=== PATIENT | female | born 1960 | race Caucasian/White ===

== ENCOUNTER 2018-01-18 20:04 | Emergency (ER) | payer SELFPAY ==
[~2018-01-18] VITALS: Ht 167.6 cm; Wt 58.1 kg
[2018-01-18 20:07] VITALS: BP 211/127
--- NOTE | 2018-01-18 20:10 | NUR ---
TO ROOM 11.
[2018-01-18] MEDS ORDERED: MORPHINE SULFATE 4 MG/ML SYR IVP ONE (20:15)
[2018-01-18] MEDS ORDERED: PROCHLORPERAZINE 10 MG/2 ML VIAL IVP ONE (20:15)
[2018-01-18] MEDS ORDERED: ENALAPRILAT 2.5 MG/2 ML VIAL IVP ONE (20:15)
[2018-01-18 20:35] LABS: BASOPHILS % (AUTO) 0.4 % (0.0-2.0); EOSINOPHILS % (AUTO) 0.1 % (0.0-4.0); HEMATOCRIT 46.6 % (36-48); HEMOGLOBIN 15.5 g/dL (12.0-16.0); LYMPHOCYTES # (AUTO) 0.7 K/uL (2.5-16.5); MEAN CORPUSCULAR HEMOGLOBIN 29 pg (27-31); MEAN CORPUSCULAR HGB CONC 33 g/dL (33-37); MONOCYTES # (AUTO) 0.5 K/uL (0.8-1.0); MONOCYTES % (AUTO) 5.7 % (1.7-9.3); NEUTROPHILS # (AUTO) 6.9 K/uL (1.8-7.7); NEUTROPHILS % (AUTO) 84.8 % (42.2-75.2); PLATELET COUNT (AUTO) 186 K/uL (140-450); RED CELL DISTRIBUTION WIDTH 13.3 % (11.6-13.7); WHITE BLOOD COUNT (AUTO) 8.1 K/uL (4.8-10.8)
--- NOTE | 2018-01-18 20:35 | NUR ---
PT PROVIDED W/ URINE CUP STATES SHE "DOES NOT HAVE TO PEE NOW".
--- NOTE | 2018-01-18 20:35 | NUR ---
PT PRESENTS TO ER C/O HEADACHE AND LEFT EAR PAIN SINCE LAST NIGHT. PT AA&OX4. PT STATES SHE HAS HIGH B/P BUT DOES NOT CURRENTLY TAKE MEDS BECAUSE SHE DOSNT KNOW WHICH ONES TO TAKE. NO DRAINAGE OR BLEEDING NOTED FROM EAR, PT DENIES TRAUMA TO HEAD. PERRL. PT LAYING IN BED HOLDING LEFT EAR AND MOANING. PMH MIGRAINES, HYSTERECTOMY, HTN
[2018-01-18 20:44] LABS: ANION GAP 12.8 (8-16); CARBON DIOXIDE 28.5 mmol/L (21-32); POTASSIUM 3.3 mmol/L (3.5-5.1)
[2018-01-18 20:50] LABS: ALBUMIN 3.6 g/dL (3.4-5.0); TOTAL BILIRUBIN 0.8 mg/dL (0.0-1.0)
[2018-01-18 21:45] LABS: APPEARANCE,URINE CLOUDY (CLEAR); BILIRUBIN,URINE NEGATIVE (NEGATIVE); BLOOD, URINE 2+ (NEGATIVE); COLOR,URINE YELLOW (YELLOW); LEUKOCYTE ESTERASE ,URINE 3+ (NEGATIVE); NITRITE, URINE POSITIVE (NEGATIVE); UGLUCOSE NEGATIVE (NEGATIVE)
[2018-01-18 21:59] LABS: RBC,URINE 0-5 (RARE) /HPF (0-5); WBC,URINE TOO MANY TO COUNT /HPF (0-5)
--- NOTE | 2018-01-18 22:40 | NUR ---
IV removed, catheter intact and site benign. Applied folded 4x4 gauze and tape to stop bleeding.
[2018-01-18 22:49] VITALS: BP 133/78
--- NOTE | 2018-01-18 22:49 | NUR ---
Patient discharged with v/s stable. Written and verbal after care instructions given and explained. Patient alert, oriented and verbalized understanding of instructions. Ambulatory with steady gait. All questions addressed prior to discharge. ID band removed. Patient advised to follow up with PMD. Rx of lisinopril, nitrofurantoin given. Patient educated on indication of medication including possible reaction and side effects. Opportunity to ask questions provided and answered.
== END 2018-01-18 22:49 | disposition home or self-care (01) ==
LOC: MED 20:04
DX: R51 Headache (principal); I10 Essential (primary) hypertension; N39.0 Urinary tract infection, site not specified; J44.9 Chronic obstructive pulmonary disease, unspecified; Z88.8 Allergy status to other drugs, medicaments and biological substances
CPT/HCPCS: 36415; 70450; 71045; 80053; 81001; 81025; 84484; 85025; 87086; 87186; 93005; 96374; 96375; 99285; J0780; J2270; J3490; Q0092

== ENCOUNTER 2020-06-21 00:50 | Emergency (ER) | payer OTHER ==
[~2020-06-21] VITALS: Ht 167.6 cm; Wt 58.1 kg
[2020-06-21 00:59] VITALS: BP 209/124
--- NOTE | 2020-06-21 01:00 | NUR ---
60 Y/O FEMALE PRESENTED TO ED C/O RLQ ABD PAIN RADIATING TO RT FLANK SINCE 1999 LAST NIGHT . PT TOOK MOTRIN 800 MG AT 2030 W/ NO RELIEF. ABD SOFT , FLAT AND TENDER TO PALPATION. PT STATES PAIN IS SHARP NON RADIATING. PT DENIES DYSURIA , FEVER , BODY ACHES , CHILLS. PT +NAUSEA. A/O X4 , RR EVEN AND UNLABORED. SKIN PINK , WARM AND INTACT. PT PLACED IN GOWN , CONNECTED TO OBSERVATION NURSE, PULSE OX AND BP CUFF. ERMD MADE AWARE OF PT ELEVATED BP AT THIS TIME. PT DENIES HORNER, BLURRY VISION AT THIS TIME. BED LOCKED AND IN LOWEST POSITION ,HOB ELEVATED, SIDE RAIL X1. PMH: HTN, Cholecystectomy, APPENDECTOMY AX: CEPHALEXIN
--- NOTE | 2020-06-21 01:20 | NUR ---
Dr. Carter examining patient.
[2020-06-21] MEDS ORDERED: KETOROLAC 30 MG/ML VIAL IVP ONE (01:25)
[2020-06-21] MEDS ORDERED: NACL 0.9% 1,000 ML IV ONE (01:25)
[2020-06-21] MEDS ORDERED: ONDANSETRON 4 MG/2 ML VIAL IVP ONE (01:25)
--- NOTE | 2020-06-21 01:28 | NUR ---
BLOOD LABS COLLECTED AND HANDED TO SHILPA LINARES.
[2020-06-21] MEDS ORDERED: hydrALAZINE 20 MG/ML VIAL IVP ONE (01:30)
--- NOTE | 2020-06-21 01:44 | NUR ---
PT AMBULATED TO RESTROOM W/ STEADY GAIT.
[2020-06-21 01:47] LABS: BASOPHILS % (AUTO) 0.5 % (0.0-2.0); EOSINOPHILS % (AUTO) 0.2 % (0.0-4.0); HEMATOCRIT 45.6 % (36-48); HEMOGLOBIN 15.5 g/dL (12.0-16.0); LYMPHOCYTES # (AUTO) 0.9 K/uL (2.5-16.5); LYMPHOCYTES % (AUTO) 13.5 % (20.5-51.1); MEAN CORPUSCULAR HEMOGLOBIN 30 pg (27-31); MEAN CORPUSCULAR HGB CONC 34 g/dL (33-37); MEAN CORPUSCULAR VOLUME 88.6 fL (80-94); MONOCYTES # (AUTO) 0.3 K/uL (0.8-1.0); MONOCYTES % (AUTO) 4.7 % (1.7-9.3); NEUTROPHILS # (AUTO) 5.7 K/uL (1.8-7.7); NEUTROPHILS % (AUTO) 81.1 % (42.2-75.2); PLATELET COUNT (AUTO) 174 K/uL (140-450); RED BLOOD CELL COUNT(AUTO) 5.15 MIL/uL (4.20-5.40); RED CELL DISTRIBUTION WIDTH 12.7 % (11.6-13.7)
--- NOTE | 2020-06-21 01:50 | NUR ---
URINE SAMPLE PROVIDED BY PT . NO UA ORDERED AT THIS TIME , URINE SAMPLE PLACED IN DIRTY UTILITY AT THIS TIME.
--- NOTE | 2020-06-21 01:51 | NUR ---
PT TAKEN TO CT VIA [facility].
--- NOTE | 2020-06-21 01:59 | NUR ---
PER ERMD ADMINISTER URINE DIP AT THIS TIME.
--- NOTE | 2020-06-21 02:00 | NUR ---
PT RETURN FROM CT
[2020-06-21 02:01] LABS: ANION GAP 14.8 (8-16); CARBON DIOXIDE 27.2 mmol/L (21-32)
[2020-06-21 02:08] LABS: ALBUMIN 4.1 g/dL (3.4-5.0); TOTAL BILIRUBIN 0.5 mg/dL (0.0-1.0)
--- NOTE | 2020-06-21 02:32 | NUR ---
PER PT AUTHORIZATION SPOKE W/ PT BOYFRIEND ARVIN REGARDING PT STATUS. WILL CALL ARVIN WHEN PT IS READY FOR DISCHARGE (cell)[phone]
--- NOTE | 2020-06-21 02:55 | NUR ---
ERMD AT BEDSIDE FOR REMEDICAL EVALUATION.
--- NOTE | 2020-06-21 03:10 | NUR ---
IV removed, catheter intact and site benign. Applied folded 4x4 gauze and tape to stop bleeding.
[2020-06-21 03:12] VITALS: BP 145/78
--- NOTE | 2020-06-21 03:12 | NUR ---
Patient discharged with v/s stable. Written and verbal after care instructions given and explained. Patient alert, oriented and verbalized understanding of instructions. Ambulatory with steady gait. All questions addressed prior to discharge. ID band removed. Patient advised to follow up with PMD. Rx of MINERAL OIL, MIRALAX, TRAMADOL AND ZOFRAN given. Patient educated on indication of medication including possible reaction and side effects. Opportunity to ask questions provided and answered.
== END 2020-06-21 03:12 | disposition home or self-care (01) ==
LOC: MED 00:50
DX: K59.00 Constipation, unspecified (principal); I10 Essential (primary) hypertension; J44.9 Chronic obstructive pulmonary disease, unspecified; Z88.1 Allergy status to other antibiotic agents; Z90.49 Acquired absence of other specified parts of digestive tract
CPT/HCPCS: 36415; 74176; 80053; 81002; 83690; 85025; 96361; 96374; 96375; 99285; J0360; J1885; J2405; J7030; 99284

== ENCOUNTER 2020-08-17 14:50 | Inpatient (IN) | payer OTHER, SELFPAY ==
[~2020-08-17] VITALS: Ht 170.2 cm; Wt 68.0 kg
--- NOTE | 2020-08-17 14:50 | NUR ---
PATIENT EVALUATED BY [facility] IN [facility].
[2020-08-17 14:56] VITALS: BP 156/102
[2020-08-17] MEDS ORDERED: LACTATED RINGERS 1,000 ML IV ONE ×2 (15:00→16:05)
[2020-08-17] MEDS ORDERED: ONDANSETRON 4 MG/2 ML VIAL IVP ONE (15:00)
[2020-08-17 15:19] LABS: BASOPHILS % (AUTO) 0.4 % (0.0-2.0); EOSINOPHILS % (AUTO) 0.1 % (0.0-4.0); HEMATOCRIT 45.2 % (36-48); HEMOGLOBIN 15.3 g/dL (12.0-16.0); LYMPHOCYTES # (AUTO) 0.7 K/uL (2.5-16.5); LYMPHOCYTES % (AUTO) 13.4 % (20.5-51.1); MEAN CORPUSCULAR HEMOGLOBIN 30 pg (27-31); MEAN CORPUSCULAR HGB CONC 34 g/dL (33-37); MEAN CORPUSCULAR VOLUME 88.2 fL (80-94); MONOCYTES # (AUTO) 0.2 K/uL (0.8-1.0); MONOCYTES % (AUTO) 3.1 % (1.7-9.3); NEUTROPHILS # (AUTO) 4.4 K/uL (1.8-7.7); PLATELET COUNT (AUTO) 175 K/uL (140-450); RED BLOOD CELL COUNT(AUTO) 5.12 MIL/uL (4.20-5.40); RED CELL DISTRIBUTION WIDTH 12.8 % (11.6-13.7); WHITE BLOOD COUNT (AUTO) 5.3 K/uL (4.8-10.8)
[2020-08-17 15:54] LABS: ALBUMIN 3.9 g/dL (3.4-5.0); ANION GAP 11.2 (8-16); CARBON DIOXIDE 27.7 mmol/L (21-32); POTASSIUM 3.9 mmol/L (3.5-5.1); TOTAL BILIRUBIN 0.4 mg/dL (0.0-1.0)
[2020-08-17] MEDS ORDERED: ONDANSETRON 4 MG/2 ML VIAL ONE (16:06)
--- NOTE | 2020-08-17 16:13 | NUR ---
EMERGENCY CONTACTS: ARVIN (BOYFRIEND) [phone], LESLIE (DAUGHTER) [phone]. PATIENT GAVE PERMISSION TO GIVE INFORMATION TO BOTH BOYFRIEND AND DAUGHTER. GAVE UPDATE TO BOTH.
[2020-08-17] MEDS ORDERED: MORPHINE SULFATE 4 MG/ML SYR IVP ONE (16:25)
[2020-08-17] MEDS ORDERED: MAG SULF 2000 MG/WATER PREMIX 50 ML IV PRN (16:45)
[2020-08-17] MEDS ORDERED: KCL 20 MEQ/WATER INJ PREMIX 200 ML IV PRN (16:45)
[2020-08-17] MEDS ORDERED: ONDANSETRON 4 MG/2 ML VIAL IVP PRN (16:45)
[2020-08-17] MEDS ORDERED: METOCLOPRAMIDE 10 MG/2 ML INJ VIAL IVP PRN (16:45)
[2020-08-17] MEDS ORDERED: ACETAMINOPHEN 325 MG TAB PO PRN (16:45)
--- NOTE | 2020-08-17 16:46 | NUR ---
PATIENT TAKEN TO US.
--- NOTE | 2020-08-17 18:13 | NUR ---
ASKED PT TO PROVIDE URINE SAMPLE. SHE STATED SHE IS NOT ABLE TO PROVIDE AT THIS TIME.
--- NOTE | 2020-08-17 19:20 | NUR ---
Report received from LUNA Alva for continuation of care.
--- NOTE | 2020-08-17 19:30 | NUR ---
60 y/o female BIBA c/o nausea & vomiting after meth use w/ 05/20 epigastric sharp nonradiating pain. A/O x 4 . RR even and unlabored. Abd flat, soft and nontender. Active bowel sounds in all quadrants. Pt denies CP, HORNER, SOB, diarrhea, fever and chills. Pt laying in bed, locked and in lowest position, HOB elevated, side rail x 2 for pt safety. VSS. No acute distress noted. pmh: HTN, COPD, hx of meth use ax: cephalexin
--- NOTE | 2020-08-17 19:53 | NUR ---
Delay in Lactated Ringers Fluid administration due to previous fluids still running at this time.
--- NOTE | 2020-08-17 19:53 | NUR ---
Jaylon lopez in [facility] - 08/17/20 at 1953 by NAMRATA Report received from LUNA Alva for continuation of care.
[2020-08-17] MEDS: ACETAMINOPHEN 325 MG TAB PO SCH (20:45)
[2020-08-17] MEDS ORDERED: KETOROLAC 15 MG/ML VIAL IVP PRN (20:45)
--- NOTE | 2020-08-17 20:50 | NUR ---
Pt sleeping in bed, locked and in lowest position, HOB elevated, side rail x 2 for pt safety. Visible rise and fall of chest. VSS.
[2020-08-17] MEDS: NACL 0.9% 1,000 ML IV SCH ×2 (22:22→22:28)
[2020-08-17] MEDS: FAMOTIDINE 20 MG/2 ML VIAL IV SCH (22:23)
--- NOTE | 2020-08-17 23:00 | NUR ---
Pt unable to provide urine at this time.
--- NOTE | 2020-08-17 23:41 | NUR ---
Pt ambulated to restroom w/ assistance.
--- NOTE | 2020-08-17 23:50 | NUR ---
Urine sample collected and walked to lab.
--- NOTE | 2020-08-17 23:59 | NUR ---
Pt accidentally pulled out IV. IV catheter intact and site benign. Applied folded 4x4 gauze and tape to stop bleeding.
--- NOTE | 2020-08-18 00:30 | NUR ---
Delay in fluid administration due to no IV access at this time.
--- NOTE | 2020-08-18 02:48 | NUR ---
Pt sleeping in bed, visible rise and fall of chest. RR even and unlabored. No acute distress noted.
--- NOTE | 2020-08-18 03:49 | NUR ---
Pt taken to restroom via w/c.
[2020-08-18] MEDS: NACL 0.9% 1,000 ML IV SCH ×4 (04:11→21:20)
--- NOTE | 2020-08-18 04:22 | NUR ---
No administration of new NS fluids d/t other NS IVF still infusing because of delay from earlier not having IV access.
[2020-08-18] MEDS: ACETAMINOPHEN 325 MG TAB PO SCH ×4 (06:00→18:30)
--- NOTE | 2020-08-18 06:53 | NUR ---
pt sleeping on left side. RR even and unlabored. VSS. No acute distress noted.
--- NOTE | 2020-08-18 07:21 | NUR ---
Report provided to LUNA Lynne for transfer of care.
[2020-08-18] MEDS: FAMOTIDINE 20 MG/2 ML VIAL IV SCH ×2 (09:45→21:00)
--- NOTE | 2020-08-18 10:00 | NUR ---
PT ALERT AND AWAKE, BREATHING EVEN AND UNLABORED.
[2020-08-18 10:46] LABS: BASOPHILS % (AUTO) 0.4 % (0.0-2.0); EOSINOPHILS % (AUTO) 0.1 % (0.0-4.0); HEMOGLOBIN 14.4 g/dL (12.0-16.0); LYMPHOCYTES % (AUTO) 20.2 % (20.5-51.1); MEAN CORPUSCULAR HEMOGLOBIN 30 pg (27-31); MEAN CORPUSCULAR HGB CONC 33 g/dL (33-37); MEAN CORPUSCULAR VOLUME 89.2 fL (80-94); MONOCYTES # (AUTO) 0.3 K/uL (0.8-1.0); MONOCYTES % (AUTO) 6.7 % (1.7-9.3); NEUTROPHILS # (AUTO) 3.7 K/uL (1.8-7.7); NEUTROPHILS % (AUTO) 72.6 % (42.2-75.2); PLATELET COUNT (AUTO) 165 K/uL (140-450); RED BLOOD CELL COUNT(AUTO) 4.82 MIL/uL (4.20-5.40); RED CELL DISTRIBUTION WIDTH 12.9 % (11.6-13.7); WHITE BLOOD COUNT (AUTO) 5.1 K/uL (4.8-10.8)
[2020-08-18 11:12] LABS: CHOL/HDL RATIO 2.7 (1-4.5)
[2020-08-18 11:13] LABS: ALBUMIN 3.3 g/dL (3.4-5.0); ANION GAP 9.5 (8-16); CARBON DIOXIDE 28.4 mmol/L (21-32); CREATININE 0.9 mg/dL (0.6-1.3); POTASSIUM 3.9 mmol/L (3.5-5.1); TOTAL BILIRUBIN 0.9 mg/dL (0.0-1.0)
--- NOTE | 2020-08-18 13:42 | NUR ---
PATIENT HAS BEEN SCREENED AND CATEGORIZED LOW NUTRITION RISK. PATIENT WILL BE SEEN WITHIN 7 DAYS OF ADMISSION. 08/23/[address]
--- NOTE | 2020-08-18 13:55 | NUR ---
PT ALERT AND AWAKE, BREATHING EVEN AND UNLABORED.
[2020-08-18] MEDS ORDERED: ACETAMINOPHEN EXTRA STRENGTH 500 MG TAB ONE (18:29)
--- NOTE | 2020-08-18 19:19 | NUR ---
REPORT GIVEN TO JIM CARRASCO, JUD OF CARE AT THIS TIME
--- NOTE | 2020-08-18 19:32 | NUR ---
RECEIVED REPORT FROM JIN CARRASCO
--- NOTE | 2020-08-18 19:47 | NUR ---
PT LAYING ON GURNEY WITH EYES CLOSED, RESPIRATIONS REGULAR EVEN AND UNLABORED. NO DISTRESS NOTED AT THIS TIME
--- NOTE | 2020-08-18 22:50 | NUR ---
Jaylon olpez in ED - 08/18/20 at 2251 by BENJIE APPT 70.4. NO CHANGE TO HEPARIN DRIP AT THIS TIME PER PROTOCOL
--- NOTE | 2020-08-19 01:33 | NUR ---
REPORT GIVEN TO SRAVANTHI CARRASCO FOR TRANSFER OF CARE
--- NOTE | 2020-08-19 01:46 | NUR ---
PT ASLEEP AND EASILY AROUSEABLE TO VOICE. VSS. IV FLUIDS RUNNING AT THIS TIME. SIDE RAILS UP AND BED IN LOWEST POSITION FOR SAFETY
[2020-08-19] MEDS: NACL 0.9% 1,000 ML IV SCH ×4 (03:03→20:34)
--- NOTE | 2020-08-19 05:30 | NUR ---
PT ASLEEP IN BED AND EASILY AROUSEABLE TO VOICE. PT VSS.
[2020-08-19] MEDS: ACETAMINOPHEN 325 MG TAB PO SCH ×4 (06:01→18:00)
--- NOTE | 2020-08-19 06:04 | NUR ---
PT AMBULATED TO RESTROOM
--- NOTE | 2020-08-19 07:23 | NUR ---
Pt report given to ESSIE CARRASCO. Transfer of care at this time.
--- NOTE | 2020-08-19 07:26 | NUR ---
Report received from LUNA White, transfer of care at this time.
--- NOTE | 2020-08-19 07:51 | NUR ---
Pt sleeping easily arousable, requested juice, VSS, will continue to monitor.
[2020-08-19 08:11] LABS: HEPATITIS A ANTIBODY IGM Negative (Negative); HEPATITIS B CORE AB TOTAL Negative (Negative); HEPATITIS B SURFACE ANTIBODY Non Reactive (.); HEPATITIS B SURFACE ANTIGEN Negative (Negative)
[2020-08-19 09:12] LABS: BASOPHILS % (AUTO) 0.4 % (0.0-2.0); EOSINOPHILS % (AUTO) 0.5 % (0.0-4.0); HEMOGLOBIN 13.4 g/dL (12.0-16.0); LYMPHOCYTES # (AUTO) 0.9 K/uL (2.5-16.5); LYMPHOCYTES % (AUTO) 21.2 % (20.5-51.1); MEAN CORPUSCULAR HEMOGLOBIN 30 pg (27-31); MEAN CORPUSCULAR HGB CONC 34 g/dL (33-37); MEAN CORPUSCULAR VOLUME 89.3 fL (80-94); MONOCYTES # (AUTO) 0.3 K/uL (0.8-1.0); MONOCYTES % (AUTO) 7.5 % (1.7-9.3); NEUTROPHILS % (AUTO) 70.4 % (42.2-75.2); PLATELET COUNT (AUTO) 144 K/uL (140-450); RED BLOOD CELL COUNT(AUTO) 4.48 MIL/uL (4.20-5.40); RED CELL DISTRIBUTION WIDTH 13.1 % (11.6-13.7); WHITE BLOOD COUNT (AUTO) 4.3 K/uL (4.8-10.8)
[2020-08-19 09:32] LABS: ALBUMIN 2.9 g/dL (3.4-5.0); ANION GAP 14.2 (8-16); CARBON DIOXIDE 23.5 mmol/L (21-32); CREATININE 0.8 mg/dL (0.6-1.3); POTASSIUM 3.7 mmol/L (3.5-5.1); TOTAL BILIRUBIN 0.7 mg/dL (0.0-1.0)
[2020-08-19] MEDS: FAMOTIDINE 20 MG/2 ML VIAL IV SCH ×2 (10:02→20:44)
--- NOTE | 2020-08-19 10:18 | NUR ---
Pt sleeping, visible equal rise and fall of chest, VSS, will continue to monitor.
--- NOTE | 2020-08-19 12:19 | NUR ---
Pt sleeping HOB lowered for comfort, VSS, will continue to monitor.
--- NOTE | 2020-08-19 14:29 | NUR ---
Pt sleeping, HOB lowered for comfort, VSS, will continue to monitor.
--- NOTE | 2020-08-19 17:17 | NUR ---
Spoke with Beulah pt for updates on pt.
--- NOTE | 2020-08-19 18:43 | NUR ---
Pt sleeping, equal visible rise and fall of chest, VSS, will continue to monitor.
--- NOTE | 2020-08-19 19:38 | NUR ---
Gave report to LUNA White, transfer of care at this time.
--- NOTE | 2020-08-19 19:41 | NUR ---
RECEIVED REPORT FROM ESSIE CARRASCO
--- NOTE | 2020-08-19 19:41 | NUR ---
PT SLEEPING. RESPIRATIONS REGULAR EVEN AND UNLABORED. NO DISTRESS NOTED
--- NOTE | 2020-08-19 19:55 | NUR ---
PT SLEEPING ON GURNEY, IV FLUIDS INFUSING. RESPIRATIONS REGULAR EVEN AND UNLABORED.
--- NOTE | 2020-08-19 22:29 | NUR ---
PT AMBULATED TO ED RESTROOM WITH STEADY GAIT.
--- NOTE | 2020-08-20 02:24 | NUR ---
PT STATING SHE WANST TO GO HOME, SAYS SHE IS TIRED OF WAITING IN THE ER. PT ADVISED THAT SHE IS ALREADY ADMITTED AND JUST BEING HELD IN THE ER UNTIL A ROOM ON THE UNIT OPENS UP. PT VERBALIZED UNDERSTANDING, ROLLED OVER AND WENT BACK TO SLEEP.
[2020-08-20] MEDS: ACETAMINOPHEN 325 MG TAB PO SCH ×2 (06:00)
[2020-08-20] MEDS: NACL 0.9% 1,000 ML IV SCH (06:15)
--- NOTE | 2020-08-20 07:33 | NUR ---
RECEIVED REPORT FROM JIM CARRASCO FOR CONTINUITY OF CARE.
--- NOTE | 2020-08-20 07:44 | NUR ---
PT RESTING IN BED, CHEST RISE AND FALL NOTED. ALL NEEDS MED. NO NEW CONCERNS AT THIS TIME. BED LOCKED AND IN LOWEST POSITION, SIDE RAIL UPX2.
[2020-08-20] MEDS: FAMOTIDINE 20 MG/2 ML VIAL IV SCH (09:59)
--- NOTE | 2020-08-20 10:16 | NUR ---
WAITING FOR PHARMACY TO BRING HEPARIN
--- NOTE | 2020-08-20 10:24 | NUR ---
SPOKE TO DR. CARLSON REGARDING UNABLE TO GET AN IV ESTABLISHED. PER DR'S ORDERS, TO CHANGE CLEAR LIQUID DIET TO REGULAR DIET, TO DC IV FLUIDS. DR. CARLSON SAID HE'LL COME LATER TO CHECK ON PT.
[2020-08-20 10:33] LABS: BASOPHILS % (AUTO) 0.5 % (0.0-2.0); EOSINOPHILS % (AUTO) 0.7 % (0.0-4.0); HEMATOCRIT 43.7 % (36-48); HEMOGLOBIN 14.9 g/dL (12.0-16.0); LYMPHOCYTES # (AUTO) 1.1 K/uL (2.5-16.5); LYMPHOCYTES % (AUTO) 26.7 % (20.5-51.1); MEAN CORPUSCULAR HEMOGLOBIN 30 pg (27-31); MEAN CORPUSCULAR HGB CONC 34 g/dL (33-37); MEAN CORPUSCULAR VOLUME 88.2 fL (80-94); MONOCYTES # (AUTO) 0.3 K/uL (0.8-1.0); MONOCYTES % (AUTO) 7.5 % (1.7-9.3); NEUTROPHILS # (AUTO) 2.7 K/uL (1.8-7.7); NEUTROPHILS % (AUTO) 64.6 % (42.2-75.2); PLATELET COUNT (AUTO) 164 K/uL (140-450); RED BLOOD CELL COUNT(AUTO) 4.96 MIL/uL (4.20-5.40); RED CELL DISTRIBUTION WIDTH 12.3 % (11.6-13.7); WHITE BLOOD COUNT (AUTO) 4.2 K/uL (4.8-10.8)
[2020-08-20 11:05] LABS: ALBUMIN 3.3 g/dL (3.4-5.0); CREATININE 0.9 mg/dL (0.6-1.3); POTASSIUM 3.7 mmol/L (3.5-5.1); TOTAL BILIRUBIN 0.6 mg/dL (0.0-1.0)
[2020-08-20 11:16] LABS: ANION GAP 10.7 (8-16)
[2020-08-20 14:10] VITALS: BP 130/80
--- NOTE | 2020-08-20 14:40 | NUR ---
PT D/C AND LEFT FACILITY AT THIS TIME.
--- NOTE | 2020-08-20 14:42 | NUR ---
PT LEFT RX AT [facility] -- CALLED PATIENT LEFT MESSAGE TO RETURN CALL. RX GIVEN TO ADMITTING STAFF FOR SAFE KEEPING.
== END 2020-08-20 14:40 | disposition home or self-care (01) | DRG 282 ==
LOC: MED 14:50 → MTU 16:42
PROVIDERS: ADMIT Hospitalist; ATTEND Hospitalist
DX: K85.90 Acute pancreatitis without necrosis or infection, unspecified (principal); Z20.822 Contact with and (suspected) exposure to COVID-19; Z88.8 Allergy status to other drugs, medicaments and biological substances; N32.89 Other specified disorders of bladder; I10 Essential (primary) hypertension; J44.9 Chronic obstructive pulmonary disease, unspecified; Z90.49 Acquired absence of other specified parts of digestive tract; Z90.710 Acquired absence of both cervix and uterus; F15.90 Other stimulant use, unspecified, uncomplicated; R74.01 Elevation of levels of liver transaminase levels; N20.0 Calculus of kidney
CPT/HCPCS: 36415; 76705; 80053; 83036; 83690; 83880; 84484; 85025; 86704; 86706; 86708; 86709; 86803; 87340; 96361; 96374; 96375; 99285; J1644; J1885; J2270; J2405; J3490; U0003

== ENCOUNTER 2021-02-03 13:36 | Emergency (ER) | payer OTHER, SELFPAY ==
[~2021-02-03] VITALS: Ht 167.6 cm; Wt 61.2 kg
[2021-02-03 13:54] VITALS: BP 160/114
--- NOTE | 2021-02-03 13:59 | NUR ---
PATIENT WHEELCHAIR ASSISTED TO ER BED 05
--- NOTE | 2021-02-03 14:22 | NUR ---
60 YEAR OLD FEMALE COMPLAINS OF DIZZINESS, HEADACHE, AND BODYACHES X 3 DAYS. PT STATES SHE IS FEELING WEAK, DENIES FALLING OR LOC. PT STATES SHE ALSO HAS NAUSEA BUT NOT VOMITTED. PT AOX4, BREATHING EVEN AND UNLABORED, SKIN WARM AND DRY. BED IN LOWEST POSITION, LOCKED, BED RAIL UPX1. PMH - HTN ALLERGIES - CEPHALEXIN, KEFLEX
[2021-02-03] MEDS ORDERED: METOCLOPRAMIDE 10 MG/2 ML INJ VIAL IVP ONE (14:25)
[2021-02-03 15:12] LABS: BASOPHILS % (AUTO) 0.5 % (0.0-2.0); EOSINOPHILS % (AUTO) 0.2 % (0.0-4.0); HEMOGLOBIN 16.6 g/dL (12.0-16.0); LYMPHOCYTES # (AUTO) 0.8 K/uL (2.5-16.5); LYMPHOCYTES % (AUTO) 8.6 % (20.5-51.1); MEAN CORPUSCULAR HEMOGLOBIN 30 pg (27-31); MEAN CORPUSCULAR HGB CONC 35 g/dL (33-37); MEAN CORPUSCULAR VOLUME 88.1 fL (80-94); MONOCYTES # (AUTO) 0.7 K/uL (0.8-1.0); MONOCYTES % (AUTO) 7.2 % (1.7-9.3); NEUTROPHILS # (AUTO) 7.6 K/uL (1.8-7.7); NEUTROPHILS % (AUTO) 83.5 % (42.2-75.2); PLATELET COUNT (AUTO) 166 K/uL (140-450); RED BLOOD CELL COUNT(AUTO) 5.45 MIL/uL (4.20-5.40); RED CELL DISTRIBUTION WIDTH 12.9 % (11.6-13.7); WHITE BLOOD COUNT (AUTO) 9.1 K/uL (4.8-10.8)
[2021-02-03 15:21] LABS: ANION GAP 13.8 (8-16); CARBON DIOXIDE 28.4 mmol/L (21-32); CREATININE 1.1 mg/dL (0.6-1.3); POTASSIUM 4.2 mmol/L (3.5-5.1)
[2021-02-03 15:27] LABS: TOTAL BILIRUBIN 0.9 mg/dL (0.0-1.0)
[2021-02-03] MEDS ORDERED: ACETAMINOPHEN 325 MG TAB PO ONE (15:45)
[2021-02-03] MEDS ORDERED: KETOROLAC 15 MG/ML VIAL IVP ONE (15:45)
[2021-02-03] MEDS ORDERED: NACL 0.9% 1,000 ML IV ONE (15:45)
--- NOTE | 2021-02-03 15:45 | NUR ---
PT ALERT AND AWAKE, BREATHING EVEN AND UNLABORED. NO DISTRESS NOTED. ALL NEEDS MET AT THIS TIME. WILL CONTINUE TO MONITOR.
[2021-02-03] MEDS ORDERED: IBUP-2213 PO (16:53)
[2021-02-03] MEDS ORDERED: ONDA-24 PO (16:53)
--- NOTE | 2021-02-03 17:00 | NUR ---
Patient discharged with v/s stable. Written and verbal after care instructions about migraine headache given and explained. Patient alert, oriented and verbalized understanding of instructions. Ambulatory with steady gait. All questions addressed prior to discharge. ID band removed. Patient advised to follow up with PMD. Rx of zofran, ibuprofen given. Patient educated on indication of medication including possible reaction and side effects. Opportunity to ask questions provided and answered.
[2021-02-03 17:03] VITALS: BP 155/109
== END 2021-02-03 17:00 | disposition home or self-care (01) ==
LOC: MED 13:36
DX: G43.909 Migraine, unspecified, not intractable, without status migrainosus (principal); I10 Essential (primary) hypertension; J44.9 Chronic obstructive pulmonary disease, unspecified; Z90.49 Acquired absence of other specified parts of digestive tract; Z90.710 Acquired absence of both cervix and uterus; Z88.1 Allergy status to other antibiotic agents; Z79.899 Other long term (current) drug therapy
CPT/HCPCS: 36415; 70450; 80053; 84484; 85025; 96365; 96375; 99284; J1885; J2765; 93005

== ENCOUNTER 2023-03-09 15:46 | Emergency (ER) | payer OTHER ==
[~2023-03-09] VITALS: Ht 162.6 cm; Wt 70.3 kg
[~2023-03-09 15:46] MED LIST: IBUP-2213 PO; ONDA-188 PO
[2023-03-09 17:21] VITALS: BP 161/89; PULSE 100; RESP 17; TEMP 97.1; O2SAT 98
[2023-03-09] MEDS ORDERED: INDO-305 PO (18:25)
[2023-03-09] MEDS ORDERED: HYDROcodone/APAP 5/325 MG 1 TAB TAB PO ONE (18:25)
[2023-03-09] MEDS ORDERED: FAMO-90 PO (18:25)
[2023-03-09 18:41] VITALS: BP 155/77; PULSE 98; RESP 17; TEMP 97.1; O2SAT 98
--- NOTE | 2023-03-09 18:42 | NUR ---
Patient discharged with v/s stable. Written and verbal after care instructions given and explained. Patient alert, oriented and verbalized understanding of instructions. Wheel Chair Assisted with to car. All questions addressed prior to discharge. ID band removed. Patient advised to follow up with PMD. Rx of INDOMETHACIN, PEPCID given. Patient educated on indication of medication including possible reaction and side effects. Opportunity to ask questions provided and answered.
== END 2023-03-09 18:42 | disposition home or self-care (01) ==
LOC: MED 15:46
DX: S91.332A Puncture wound without foreign body, left foot, initial encounter (principal); M10.9 Gout, unspecified; J44.9 Chronic obstructive pulmonary disease, unspecified; I10 Essential (primary) hypertension; Z79.899 Other long term (current) drug therapy; W22.8XXA Striking against or struck by other objects, initial encounter; Y93.89 Activity, other specified; Y92.89 Other specified places as the place of occurrence of the external cause; Y99.8 Other external cause status
CPT/HCPCS: 73630; 99283

== ENCOUNTER 2023-03-14 19:56 | Emergency (ER) | payer OTHER ==
[~2023-03-14] VITALS: Ht 167.6 cm; Wt 53.5 kg
[~2023-03-14 19:56] MED LIST changes: +FAMO-90 PO; +INDO-305 PO
--- NOTE | 2023-03-14 20:00 | NUR ---
PT TO BED 11
[2023-03-14 20:04] VITALS: BP 101/117; PULSE 101; RESP 16; TEMP 98.7; O2SAT 100
--- NOTE | 2023-03-14 20:15 | NUR ---
RECEIVED IN BED 11 WITH C/O RIGHT GT TOE PAIN AND SWELLING. WAS SEEN ON 03/09/23 DX WITH GOUT AND RX GIVEN OF PEPCID AND ZOFRAN. RIGHT BIG TOE IS RED, SWELLING, AND DRAINAGE. PT CONCERNED THAT SHE DID NOT GET ANTIBIOTICS.
[2023-03-14] MEDS ORDERED: CEPH-588 PO ×2 (20:37→20:38)
[2023-03-14] MEDS ORDERED: ACET-10509 PO (20:37)
[2023-03-14 20:43] VITALS: BP 168/99; PULSE 101; RESP 16; TEMP 98.7; O2SAT 100
--- NOTE | 2023-03-14 20:43 | NUR ---
Patient discharged with v/s stable. Written and verbal after care instructions given and explained. Patient alert, oriented and verbalized understanding of instructions. Ambulatory with steady gait. All questions addressed prior to discharge. ID band removed. Patient advised to follow up with PMD. Rx of KEFLEX, TYLENOL given. Patient educated on indication of medication including possible reaction and side effects. Opportunity to ask questions provided and answered.
== END 2023-03-14 20:43 | disposition home or self-care (01) ==
LOC: MED 19:56
DX: L03.032 Cellulitis of left toe (principal); J44.9 Chronic obstructive pulmonary disease, unspecified; I10 Essential (primary) hypertension; Z88.1 Allergy status to other antibiotic agents; Z79.899 Other long term (current) drug therapy
CPT/HCPCS: 99283

== ENCOUNTER 2023-04-06 22:24 | Emergency (ER) | payer OTHER ==
[~2023-04-06] VITALS: Ht 167.6 cm; Wt 53.5 kg
[~2023-04-06 22:24] MED LIST changes: +ACET-10509 PO; +CEPH-588 PO
[2023-04-06 22:41] VITALS: BP 190/99; PULSE 102; RESP 16; TEMP 98; O2SAT 99
[2023-04-07] MEDS ORDERED: HYD1C TP (00:23)
[2023-04-07] MEDS ORDERED: ACET-10509 PO (00:23)
[2023-04-07] MEDS ORDERED: DIPH25TA53 PO (00:23)
[2023-04-07 00:45] VITALS: BP 160/80; PULSE 102; RESP 16; TEMP 98; O2SAT 99
== END 2023-04-07 00:45 | disposition home or self-care (01) ==
LOC: MED 22:24
DX: S90.861A Insect bite (nonvenomous), right foot, initial encounter (principal); S90.862A Insect bite (nonvenomous), left foot, initial encounter; J44.9 Chronic obstructive pulmonary disease, unspecified; E11.9 Type 2 diabetes mellitus without complications; I10 Essential (primary) hypertension; Z88.1 Allergy status to other antibiotic agents; Z79.899 Other long term (current) drug therapy; W57.XXXA Bitten or stung by nonvenomous insect and other nonvenomous arthropods, initial encounter; Y93.89 Activity, other specified; Y92.89 Other specified places as the place of occurrence of the external cause; Y99.8 Other external cause status
CPT/HCPCS: 99282

== ENCOUNTER 2023-07-03 16:54 | Emergency (ER) | payer OTHER ==
[~2023-07-03] VITALS: Ht 167.6 cm; Wt 53.5 kg
[~2023-07-03 16:54] MED LIST changes: +DIPH25TA53 PO; +HYD1C TP
[2023-07-03 16:58] VITALS: BP 170/100; PULSE 81; RESP 16; TEMP 97.8; O2SAT 100
[2023-07-03] MEDS ORDERED: METOCLOPRAMIDE 10 MG/2 ML INJ VIAL IVP ONE (17:25)
[2023-07-03] MEDS ORDERED: NACL 0.9% 1,000 ML IV ONE (17:25)
[2023-07-03] MEDS ORDERED: diphenhydrAMINE 50 MG/ML VIAL IVP ONE (17:25)
[2023-07-03 17:47] LABS: BASOPHILS % (AUTO) 0.8 % (0.0-2.0); HEMATOCRIT 39.5 % (36-48); HEMOGLOBIN 13.2 g/dL (12.0-16.0); MEAN CORPUSCULAR HEMOGLOBIN 30 pg (27-31); MEAN CORPUSCULAR HGB CONC 33 g/dL (33-37); MEAN CORPUSCULAR VOLUME 90.4 fL (80-94); MONOCYTES # (AUTO) 0.3 K/uL (0.8-1.0); MONOCYTES % (AUTO) 6.5 % (1.7-9.3); NEUTROPHILS # (AUTO) 2.8 K/uL (1.8-7.7); NEUTROPHILS % (AUTO) 66.7 % (42.2-75.2); PLATELET COUNT (AUTO) 194 K/uL (140-450); RED BLOOD CELL COUNT(AUTO) 4.36 MIL/uL (4.20-5.40); RED CELL DISTRIBUTION WIDTH 13.2 % (11.6-13.7); WHITE BLOOD COUNT (AUTO) 4.1 K/uL (4.8-10.8)
[2023-07-03] MEDS ORDERED: CLONIDINE HYDROCHLORIDE 0.1 MG TAB PO ONE (17:55)
[2023-07-03 18:08] LABS: ALANINE AMINOTRANSFERASE 20 U/L (12-78); ALBUMIN 3.2 g/dL (3.4-5.0); ALKALINE PHOSPHATASE 132 U/L (50-136); ANION GAP 10.7 (8-16); ASPARTATE AMINOTRANSFERASE 19 U/L (15-37); CALCIUM 8.4 mg/dL (8.5-10.1); CARBON DIOXIDE 28.7 mmol/L (21-32); CHLORIDE 110 mmol/L (98-107); CREATININE 1.3 mg/dL (0.6-1.3); GFR ARICAN-AMERICAN 53 mL/min (>90); GFR NON ARICAN-AMERICAN 44 mL/min (>90); GLUCOSE 114 mg/dL (74-106); LIPASE 29 U/L (16-77); POTASSIUM 4.4 mmol/L (3.5-5.1); SODIUM SERUM 145 mmol/L (136-145); TOTAL BILIRUBIN 0.4 mg/dL (0.0-1.0); TOTAL PROTEIN, SERUM 7.1 g/dL (6.4-8.2); UREA NITROGEN, BLOOD 19 mg/dL (7-18)
[2023-07-03] MEDS ORDERED: ACETAMINOPHEN 325 MG TAB PO ONE (18:30)
[2023-07-03] MEDS ORDERED: METOCLOPRAMIDE 10 MG TAB PO ONE (18:30)
[2023-07-03] MEDS ORDERED: AMLO5TAB PO (19:00)
[2023-07-03] MEDS ORDERED: ONDA-188 SL (19:00)
[2023-07-03 19:15] VITALS: BP 144/86; PULSE 65; RESP 16; TEMP 97.8; O2SAT 100
== END 2023-07-03 19:15 | disposition home or self-care (01) ==
LOC: MED 16:54
DX: N28.9 Disorder of kidney and ureter, unspecified (principal); I10 Essential (primary) hypertension; R51.9 Headache, unspecified; Z79.899 Other long term (current) drug therapy
CPT/HCPCS: 36415; 70450; 71045; 80053; 83690; 84484; 85025; 93005; 99285; J8597; Q0163